=== PATIENT | female | born 1965 | race Caucasian/White ===

== ENCOUNTER 2018-04-13 09:17 | Emergency (ER) | payer MEDICAID ==
[~2018-04-13] VITALS: Ht 149.9 cm; Wt 62.6 kg
[2018-04-13] MEDS ORDERED: ATENOLOL25 MG PO (09:30)
[2018-04-13] MEDS ORDERED: ZESTRIL40 MG PO (09:30)
[2018-04-13] MEDS ORDERED: ONDANSETRON ODT8 MG PO (10:54)
== END 2018-04-13 11:21 | disposition home or self-care (01) ==
LOC: ED 09:17
DX: R11.2 Nausea with vomiting, unspecified (principal); I10 Essential (primary) hypertension; Z88.5 Allergy status to narcotic agent; Z79.899 Other long term (current) drug therapy
CPT/HCPCS: 80053; 82150; 83690; 85025; 96361; 96374; 96375; 99284; J2405; J7030